=== PATIENT | female | born 1985 | race Two or more races ===

== ENCOUNTER 2020-05-11 07:33 | Day surgery (SDC) | payer OTHER ==
[2020-05-11] VITALS (7 sets, daily range): BP systolic 110–155; BP diastolic 68–79
[~2020-05-11] VITALS: Ht 160 cm; Wt 63.5 kg
--- NOTE | 2020-05-11 06:33 | Anethesia Preoperative Eval ---
Anesthesia Pre-op PMH/ROS General Date of Evaluation: May 11, 2020 Anesthesiologist: Tirso ASA Score: ASA 2 Mallampati Score Class I : Soft palate, uvula, fauces, pillars visible Class II: Soft palate, uvula, fauces visible Class III: Soft palate, base of uvula visible Class IV: Only hard plate visible Mallampati Classification: Class I Surgeon: Javier Diagnosis: Dysphagia Surgical Procedure: EGD Anesthesia History: none Family History: no anesthesia problems Allergies: Coded Allergies: METOCLOPRAMIDE (Verified Allergy, Intermediate, swelling, 05/11/20) Medications: see eMAR Patient NPO?: Yes NPO Date: May 11, 2020 NPO Time: 00:00 Past Medical History Cardiovascular: Reports: other - HLD; Denies: HTN, CAD, [place], valve dz, arrhythmia Pulmonary: Denies: asthma, COPD, STEFANIA, other Gastrointestinal/Genitourinary: Reports: GERD; Denies: CRI, ESRD, other Neurologic/Psychiatric: Reports: depression/anxiety, other - migraines; Denies: dementia, CVA, TIA Endocrine: Denies: DM, hypothyroidism, steroids, other HEENT: Denies: cataract (L), cataract (R), glaucoma, [place] (L), [place] (R), other Hematology/Immune: Denies: anemia, DVT, bleeding disorder, other Musculoskeletal/Integumentary: Reports: other - scoliosis; Denies: OA, RA, DJD, DDD, edema PSxH Narrative: septoplasty, T&A, Right kidney sx Anesthesia Pre-op Phys. Exam Physician Exam see chart Constitutional: NAD Cardiovascular: RRR Respiratory: CTA Airway Exam Mallampati Score: Class I MO: full ROM: full Anesthesia Pre-op A/P Labs see chart Risk Assessment & Plan Assessment: ASA II Plan: MAC Status Change Before Surgery: No Pre-Antibiotics Drug: N/A Given Within 1 Hr of Incision: Yes Sarah Chahal MD May 11, 2020 06:33
[2020-05-11] MEDS ORDERED: XANAX0.5 MG ORAL (07:56)
[2020-05-11] MEDS ORDERED: SIMVASTATIN10 MG ORAL (07:57)
[2020-05-11] MEDS ORDERED: EMGALITY S120 MG/1 M SQ (07:58)
[2020-05-11] MEDS ORDERED: ZOFRAN4 M3 ORAL (08:00)
[2020-05-11] MEDS ORDERED: UBRELVY100 MG PO (08:01)
[2020-05-11] MEDS ORDERED: OMEPRAZOLE40 M1 ORAL (08:02)
--- NOTE | 2020-05-11 08:42 | Pre-Procedure Note/Attestation ---
Pre-Procedure Note/Attestation Complete Prior to Procedure Planned Procedure: not applicable Procedure Narrative: egd Indications for Procedure Pre-Operative Diagnosis: dysphagia Attestation I attest that I discussed the nature of the procedure; its benefits; risks and complications; and alternatives (and the risks and benefits of such alternatives), prior to the procedure, with the patient (or the patient's legal insurance service representative). I attest that, if there was a reasonable possibility of needing a blood transfusion, the patient (or the patient's legal insurance service representative) was given the [facility] standardized written summary, pursuant to the [employer] Blood Safety Act ([place] Health and Safety Code # 1645, as amended). I attest that I re-evaluated the patient just prior to the surgery and that there has been no change in the patient's H&P, except as documented below: Zana Herrera MD May 11, 2020 08:42
--- NOTE | 2020-05-11 08:42 | Short Stay Surgery H&P ---
History of Present Illness History of Present Illness Chief Complaint see attached HPI Anand Linares is a 34 year old female who was admitted on for Dysphasia Patient History Allergies: Coded Allergies: METOCLOPRAMIDE (Verified Allergy, Intermediate, swelling, 05/11/20) Medication History Scheduled Galcanezumab-Gnlm (Emgality Syringe), 120 MG SQ q month, (Reported) Omeprazole (Omeprazole), 40 MG ORAL DAILY, (Reported) Simvastatin (Zocor), 50 MG ORAL BEDTIME, (Reported) Scheduled PRN Ondansetron* (Zofran*), 4 MG ORAL Q6H PRN for Nausea & Vomiting, (Reported) Ubrogepant (Ubrelvy), 100 MG PO for headache, (Reported) Miscellaneous Medications Alprazolam* (Xanax*), 0.5 MG ORAL, (Reported) Physical Exam Vital Signs Last Vital Signs Date Time Temp Pulse Resp B/P (MAP) Pulse Ox O2 Delivery O2 Flow Rate FiO2 05/11/20 08:14 98.2 80 18 119/79 99 Room Air Labs Laboratory Tests Test 05/11/20 07:45 Urine HCG, Qualitative Negative (NEGATIVE) Plan Attestation Are the patient's medical conditions optimized for surgery? Zana Herrera MD May 11, 2020 08:41
[2020-05-11] MEDS ORDERED: Lidocaine 1% MPF 10mg/ml 5ml ONE (09:00)
--- NOTE | 2020-05-11 09:01 | Immediate Post-Op Evaluation ---
Immediate Post-Op Evalulation Immediate Post-Op Evalulation Procedure: EGD Date of Evaluation: May 11, 2020 Time of Evaluation: 09:04 IV Fluids: 200 Blood Products: 0 Estimated Blood Loss: 0 Urinary Output: 0 Blood Pressure Systolic: 112 Blood Pressure Diastolic: 68 Pulse Rate: 69 Respiratory Rate: 16 O2 Sat by Pulse Oximetry: 100 Temperature (Fahrenheit): 97.8 Pain Score (1-10): 0 Nausea: No Vomiting: No Complications 0 Patient Status: awake, reacts, patent, none Hydration Status: adequate Drug: N/A Sarah Chahal MD May 11, 2020 09:01
--- NOTE | 2020-05-11 09:02 | 48 Hour Post Anesthesia Eval ---
Post Anesthesia Evaluation Procedure: EGD Date of Evaluation: May 11, 2020 Airway: patent Nausea: No Vomiting: No Pain Intensity: 0 Hydration Status: adequate Cardiopulmonary Status: at baseline Mental Status/LOC: patient returned to baseline Post-Anesthesia Complications: 0 Follow-up care needed: ready to discharge Sarah Chahal MD May 11, 2020 09:02
--- NOTE | 2020-05-11 09:16 | Endoscopy Procedure Note ---
Endoscopy Procedure Note General Indication for Procedure: dysphagia Procedures Performed: EGD Operative Findings/Diagnosis: linear gastritis Specimen: yes Pt Tolerated Procedure Well: Yes Estimated Blood Loss: none Anesthesia Anesthesiologist: Willian Anesthesia: MAC Medications Medication Given: see anesthesia record Inserted Devices Implant(s) used?: No GI Core Measures 50 yrs or older w/o bx or poly: Not Applicable 10yrs. F/U recommended: Not Applicable Zana Herrera MD May 11, 2020 09:16
--- NOTE | 2020-05-11 09:17 | Brief Operative Note ---
Immediate Post Operative Note Operative Note Chief Complaint: dysphagia Pre-op Diagnosis: dysphagia Post-op Diagnosis: gastritis Surgeon: romina Anesthesia: MAC Specimen: yes Complications: none Condition: stable Fluids: per anesthesia Estimated Blood Loss: none Drains: none Implant(s) used?: No Zana Herrera MD May 11, 2020 09:17
--- NOTE | 2020-05-11 11:14 | Operative Note - Dictated ---
DATE OF OPERATION: 05/11/2020 GASTROENTEROLOGY PROCEDURE REPORT PROCEDURE: Upper gastrointestinal endoscopy and biopsy. SURGEON: Zana Herrera MD. ANESTHESIA: Dr. Chahal. PRE-ENDOSCOPIC DIAGNOSIS: Dysphagia. POST-ENDOSCOPIC DIAGNOSES: 1. Linear antral gastritis, status post biopsy. 2. No ulcers or mass lesions identified to explain the patient's symptoms. 3. Status post random biopsies of the antrum, lower esophagus and mid esophagus. DESCRIPTION OF PROCEDURE: The procedure, its risks, indications, alternatives, and possible complications were explained to the patient and informed consent was obtained. The patient was then sedated in the left lateral decubitus position and a diagnostic upper endoscope was introduced through the oropharynx and advanced to the duodenum without difficulty. The endoscope was then gradually withdrawn and the mucosa examined carefully. Examination of the upper gastrointestinal mucosa revealed some linear erythema in the antrum of the stomach. This was biopsied. There were no ulcers or mass lesions seen in the stomach or the esophagus. Random biopsies of the mid esophagus and lower esophagus were sent to pathology for review. The endoscope was removed. The patient was sent to recovery in good condition. COMPLICATIONS: None. ASSESSMENT: There were no abnormalities seen visually on endoscopy to explain the patient's symptoms of dysphagia. Biopsies will be evaluated to rule out microscopic evidence of acid reflux or eosinophilic esophagitis. Thank you for asking me to participate in the care of this patient. Zana Herrera M.D. DR: MARINA JOB#: [id number] CC: Marcus Reyes MD.; Fax#: [phone] AZNA HERRERA M.D. ; FAX#: [phone]
== END 2020-05-11 10:10 | disposition home or self-care (01) ==
LOC: GAS 07:33
DX: R13.10 Dysphagia, unspecified (principal); K29.50 Unspecified chronic gastritis without bleeding; K31.9 Disease of stomach and duodenum, unspecified; Z88.8 Allergy status to other drugs, medicaments and biological substances; Z79.899 Other long term (current) drug therapy; F32.9 Major depressive disorder, single episode, unspecified; F41.9 Anxiety disorder, unspecified; E78.5 Hyperlipidemia, unspecified; K21.9 Gastro-esophageal reflux disease without esophagitis; M41.9 Scoliosis, unspecified
CPT/HCPCS: 43239; 81025; 94003; J2704; J7030; U0002; 94150